=== PATIENT | male | born 1960 | race Caucasian/White ===

== ENCOUNTER 2023-05-12 12:29 | Emergency (ER) | payer SELFPAY ==
[~2023-05-12] VITALS: Ht 172.7 cm; Wt 70.0 kg
[2023-05-12 12:35] VITALS: BP 231/120; PULSE 70; RESP 20; TEMP 98.5; O2SAT 100
[2023-05-12 14:00] LABS: EOSINOPHILS % 1.3 % (0.0-5.0); HEMATOCRIT. 31.5 % (42.0-52.0); HEMOGLOBIN. 10.7 g/dL (14.0-18.0); LYMPHOCYTES % 11.3 % (20.0-50.0); MEAN CORPUSCULAR HEMOGLOBIN 29.2 pg (28.0-32.0); MEAN CORPUSCULAR HGB CONC 33.9 g/dL (31.0-37.0); MEAN CORPUSCULAR VOLUME 86.2 fL (80.0-94.0); MEAN PLATELET VOLUME 8.3 fl (7.4-10.4); MONOCYTES % 8.8 % (2.0-8.0); NEUTROPHILS % 77.6 % (40.0-76.0); PLATELET 232 x1000/uL (130-400); RED BLOOD CELL COUNT 3.66 mill/uL (4.7-6.1); RED CELL DISTRIBUTION WIDTH 13.9 % (11.6-14.6)
[2023-05-12 14:11] LABS: CALCIUM 7.9 mg/dL (8.7-10.4); CARBON DIOXIDE 24 mEq/L (21-32); CHLORIDE 105 mEq/L (98-107); CREATININE 1.3 mg/dL (0.6-1.3); POTASSIUM 4.8 mEq/L (3.5-5.1); SODIUM 135 mEq/L (136-145); TROPONIN I HIGH SENSITIVITY 4 ng/L (3.0-53); UREA NITROGEN BLOOD 24 mg/dL (9-23)
[2023-05-12 14:23] LABS: GLUCOSE 423 mg/dL (70-105)
[2023-05-12] MEDS ORDERED: CYCL10TA21 MT (19:56)
[2023-05-12] MEDS ORDERED: IBUP-2029 MT (19:56)
== END 2023-05-12 21:10 | disposition home or self-care (01) ==
LOC: ER 13:00
DX: R07.89 Other chest pain (principal); I10 Essential (primary) hypertension; E11.9 Type 2 diabetes mellitus without complications; V98.8XXA Other specified transport accidents, initial encounter; Y93.89 Activity, other specified; Y92.89 Other specified places as the place of occurrence of the external cause; Y99.8 Other external cause status
CPT/HCPCS: 36415; 71045; 80048; 84484; 85025; 99284